=== PATIENT | male | born 2000 | race Caucasian/White ===

== ENCOUNTER 2022-09-20 17:24 | Emergency (ER) | payer OTHER ==
[2022-09-20 17:31] VITALS: BP 122/78; PULSE 72; RESP 18; TEMP 98; BMI 26.5
[2022-09-20] MEDS ORDERED: DIPHTH,PERTUSS(ACELL),TET 0.5 ML DISP.SYRIN IM ONE ×2 (18:32→18:41)
== END 2022-09-20 19:12 | disposition home or self-care (01) ==
LOC: JER 17:24
DX: S60.511A Abrasion of right hand, initial encounter (principal); Y04.8XXA Assault by other bodily force, initial encounter
CPT/HCPCS: 99282-25

== ENCOUNTER 2022-10-17 13:13 | Emergency (ER) | payer OTHER ==
[2022-10-17 13:47] VITALS: BP 131/86; PULSE 96; RESP 18; TEMP 98.9; BMI 26.5
[2022-10-17] MEDS ORDERED: DEXAMETHASONE SOD PHOSPHATE 4 MG/1 ML VIAL IM ONE (14:32)
[2022-10-17] MEDS ORDERED: DEXAMETHASONE SOD PHOSPHATE 4 MG/1 ML VIAL ONE (14:34)
[2022-10-17 15:53] LABS: THROAT:GRP A STREP NOT DETECTED (NOTDETECTED)
== END 2022-10-17 15:28 | disposition home or self-care (01) ==
LOC: JER 13:13
PROC: 3E023GC Introduction of Other Therapeutic Substance into Muscle, Percutaneous Approach (ICD-10-PCS; principal; 2022-10-17)
DX: J02.9 Acute pharyngitis, unspecified (principal)
CPT/HCPCS: 0241U-QW; 87651; 99284-25